=== PATIENT | female | born 1975 | race American Indian/Alaskan Native ===

== ENCOUNTER 2019-02-03 08:04 | Observation (INO) | payer BC ==
[2019-01-29 10:41] LABS: Mean Corpuscular HGB Conc 28 % (30-34); Platelet Count 267 K/mm3 (140-440); Red Blood Count 2.68 M/mm3 (3.65-5.03)
[2019-01-29 10:48] LABS: Hematocrit 16.7 % (30.3-42.9); Hemoglobin 4.7 gm/dl (10.1-14.3); Mean Corpuscular Volume 63 fl (79-97); Red Cell Distribution Width 31.2 % (13.2-15.2)
[2019-01-29 10:53] LABS: Blood Urea Nitrogen 11 mg/dL (7-17)
[2019-01-29 12:07] LABS: BUN/Creatinine Ratio 16; Calcium 8.8 mg/dL (8.4-10.2); Hemolysis Index 0
--- NOTE | 2019-01-29 12:18 | Anesthesia Consultation ---
Anesthesia Consult and Med Hx Date of service: 01/29/19 - Airway Anesthetic Teeth Evaluation: Good ROM Head & Neck: Adequate Mental/Hyoid Distance: Adequate Mallampati Class: Class III Intubation Access Assessment: Possibly Difficult - Pulmonary Exam CTA: Yes - Cardiac Exam Cardiac Exam: RRR (low grade tachycardia noted) - Pre-Operative Health Status ASA Pre-Surgery Classification: ASA3 Proposed Anesthetic Plan: General Nerve Block: TAP - Pulmonary Hx Smoking: No Hx Respiratory Symptoms: No Hx Sleep Apnea: Yes (no CPAP) - Cardiovascular System Hx Hypertension: Yes (not currently on antihypertensives) Hx Heart Attack/AMI: No Hx Percutaneous Transluminal Coronary Angioplasty (PTCA): No - Central Nervous System CVA: No Hx Psychiatric Problems: No - Gastrointestinal Hx Gastroesophageal Reflux Disease: No - Endocrine Hx Renal Disease: No Hx Liver Disease: No Hx Insulin Dependent Diabetes: No Hx Non-Insulin Dependent Diabetes: No Hx Thyroid Disease: No - Hematic Hx Anemia: Yes (last transfusion 09/2018) - Other Systems Hx Alcohol Use: Yes (Occas) Hx Obesity: Yes (BMI 46) - Additional Comments Anesthesia Medical History Comments: Hx PONV with prior anesthetic. Low grade tachycardia and modest hypertension noted in preassessment which patient attributed to anxiety. After patient left, Hb resulted 4.7. Patient called back and instructed to go to ED for transfusion. She states she will go to [facility] since this is closer to home. Surgeon's office notified. Will recheck CBC DOS.
[2019-01-29 12:56] LABS: Band Neutrophils # (Manual) 0.1 K/mm3; Total Cells Counted 100
[2019-01-29 12:57] LABS: Anisocytosis 2+; Hypochromasia 3+; Platelet Estimate Consistent w Auto
--- NOTE | 2019-02-02 20:26 | History and Physical Report ---
History of Present Illness Date of examination: 01/27/19 History of present illness: Patient has been reassessed/reevaluated. H&P has been reviewed. No interval changes. This is a 43 years old female who presents with uterine fibroids. The symptoms began 6-12 months ago. She complains of pelvic pain, pelvic pressure, menorrhagia and intermenstrual bleeding. Associated symptoms include recurrent loss. Treatment tried to date includes control pills and myomectomy. Prior to today's visit the patient has had US of pelvis and sonohysterogram. . She complains of irregular menses, heavy bleeding, dysmenorrhea, clotting, lightheadedness, fatigue and cramping, but denies mid-cycle spotting, lack of menses, history of ovarian cysts, history of thyroid disease, history of PCOS and history of bleeding disorder. Number of pads used per day is > 10. Menstrual flow lasts > 7 days.Patient's symptoms when present disrupts her normal daily activities Patient desires definitive treatment Vital Signs: Patient Profile: 43 Years Old Female Height: 63 inches (160.02 cm) Weight: 260 pounds BMI: 46.05 Current Method of Contraception: None Date of Last Pap Smear: 12/30/2018 Past History : 3 Term Births: 0 Premature Births: 1 Living Children: 0 Para: 1 Mult. Births: 0 Prev : 0 Aborta: 2 Elect. Ab: 0 Spont. 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 History Operations: [place] Robotic Myomectomy (10/11/2012) Uterine Anomaly: positive fibroids Infection History HIV Risk Eval: no Current Allergies: PCN (Critical) ASA (Critical) CIPRO (Critical) Past Medical History: Fibroids Anemia (10/14/2018) Blood Transfusion (10/14/2018) 3units PRBC Blood Transfusion (01/29/2019) 4units Past Surgical History: Cer[place]age Robotic Myomectomy (10/11/2012) Family History Summary: General Comments - FH: No Family History of DVT/PE on OCP Social History: Reviewed history from 09/24/2014 and no changes required: 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 Risk Factors: Smoked Tobacco Use: Never smoker Drug use: no HIV high-risk behavior: no Caffeine use: 1 drinks per day Alcohol use: yes Type: rare Exercise: yes Seatbelt use: 100 % PAP Smear History: Date of Last PAP Smear: 12/30/2018 Review of Systems General Complains of fatigue. Denies fever, chills, sweats, anorexia, weakness, malaise, weight loss and sleep disorder. Complains of menorrhagia, pelvic pain and painful periods. Denies vaginal discharge, incontinence, dysuria, hematuria, urinary frequency, amenorrhea, abnormal vaginal bleeding, genital sores, decreased libido, painful sex, urinary urgency, hot flashes, vaginal dryness, vaginal itching and vaginal odor. CV Denies chest pains, palpitations, syncope, dyspnea on exertion, orthopnea, PND and peripheral edema. Resp Denies cough, dyspnea at rest, excessive sputum, hemoptysis, wheezing and pleurisy. GI Denies nausea, vomiting, diarrhea, constipation, change in bowel habits, abdominal pain, melena, hematochezia, jaundice, gas/bloating, indigestion/heartburn, dysphagia and odynophagia. Breast Denies left breast lump, right breast lump, nipple discharge, bloody discharge from nipple, breast pain, abnormal mammogram and breast enlargement. Psych Denies depression, anxiety, irritability and mood swings. Past History Past Medical History: other (SEE HPI) Past Surgical History: Other (SEE HPI) Social history: other (SEE HPI) Family history: other (SEE HPI) Medications and Allergies Allergies Allergy/AdvReac Type Severity Reaction Status Date / Time ciprofloxacin [From Cipro] Allergy Anaphylaxis Verified 01/28/19 11:04 Penicillins Allergy Unknown Verified 01/28/19 11:04 aspirin AdvReac Stomach Verified 01/28/19 11:04 pain Home Medications Medication Instructions Recorded Confirmed Last Taken Type Ferrous Sulfate [Ferrous Sulfate 1 tab PO DAILY 01/28/19 01/28/19 Unknown History 324 MG] Ibuprofen [Motrin 800 MG tab] 800 mg PO Q8H PRN 01/28/19 01/28/19 Unknown History Norethindrone-Ethinyl Estrad 1 tab PO DAILY 01/28/19 01/28/19 Unknown History [Balziva 28 Tablet] Active Meds: Active Medications Celecoxib (Celebrex) 200 mg PO PREOP NR Stop: 02/03/19 23:00 Fentanyl (Sublimaze) 100 mcg IV PRN PRN PRN Reason: sedation for nerve block Gabapentin (Gabapentin) 300 mg PO PREOP NR Stop: 02/03/19 23:00 Lactated Ringer's (Lactated Ringers) 1,000 mls @ 100 mls/hr IV DIRECT ISHA Cefazolin Sodium 3 gm/ Sodium (Chloride) 100 mls @ 100 mls/30 min IV PREOP NR; Protocol Stop: 02/03/19 23:59 Midazolam HCl (Versed) 2 mg IV PREOP NR Stop: 02/03/19 23:00 Scopolamine (Transderm-Scop) 1 each TD PREOP NR Stop: 02/03/19 23:01 Review of Systems Constitutional: other (SEE HPI) Exam - Physical Exam Narrative exam: HEENT: normocephalic, no lesions or deformities Skin no ulcers, xanthomas Chest: respiratory effort normal, clear to auscultation CV: regular, normal S1-S2, no murmur, no rub, no gallop Abdomen: Obese, normal bowel sounds, soft, nontender, no HSM Robotic surgical scars Musculoskeletal: grossly normal ROM in joints, no joint tenderness or muscle weakness Neuro: no gross anomalities Extremities: normal alignment, no joint enlargement, crepitus, masses or tenderness; normal tone and strength 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 No evidence of cystocele or rectocele. blood in vault Cervix: normal appearance, small clot in os Uterus: unable to palpate Adnexae: unable to palpate due to obesity Rectovaginal: exam defered - Constitutional Vitals: Temp Pulse Resp BP Pulse Ox 99.6 F 107 H 20 159/97 99 01/29/19 10:20 01/29/19 10:20 01/29/19 10:20 01/29/19 10:20 01/29/19 10:20 Results - Labs CBC & Chem 7: 02/03/19 Unknown 01/29/19 10:25 Assessment and Plan - Patient Problems (1) Intramural leiomyoma of uterus Current Visit: No Status: Acute Plan to address problem: Diagnosis explained to patient . Questions answered. Discussed with patient various medical, surgical and radiological therapies common for treatment including myomectomy hysterectomy and uterine artery embolization Patient's symptoms when present disrupts her normal daily activities Patient desires definitive treatment Conservative therapies have failed. Patient desires definitive treatment Patient desires hysterectomy Discussed risks and benefits of laparotomy, laparoscopy, vaginal and robotic assisted approaches for hysterectomies Patient desires robotic assisted total hysterectomy.Patient desires robotic assisted total hysterectomy. Consent reviewed and signed . The risks and alternatives for this surgery were reviewed with the patient. Discuss the risks of the surgery including infection, bleeding possibly heavy enough to require a blood transfusion, possible damage to bowel, bladder or ureter. Patient understand that this surgery with make her sterile.Patient understands if her ovaries are removed she will become menopausal. Also if unable to complete robitcally a laparotomy may be required. Patient advised the small risks of spreading of malignancy if morcellator is used during the surgery patient understands and approve of use if necessary Patient understands and desires to proceed. : (2) Menorrhagia Current Visit: No Status: Acute Qualifiers: Menorrahagia type: with irregular cycle Qualified Code(s): N92.1 - Excessive and frequent menstruation with irregular cycle Plan to address problem: Probably secondary to # 1 (3) Severe anemia Current Visit: No Status: Acute Plan to address problem: Probably secondary to # 1 s/p transfusions (4) BMI 45.0-49.9, adult Current Visit: No Status: Chronic (5) Dysmenorrhea Current Visit: No Status: Acute Plan to address problem: Probably secondary to # 1
[~2019-02-03 08:04] MED LIST: CELECOXIB 200 MG CAP PO NR; GABAPENTIN 300 MG CAP PO NR; LACTATED RINGERS 1,000 ML IV SCH; MIDAZOLAM 2 MG/2 ML INJ IV NR; SCOPOLAMINE TRANSDERMAL PATCH 72 HR TD NR; fentaNYL 100 MCG/2 ML INJ IV PRN
--- NOTE | 2019-02-03 09:02 | Anesthesia Day of Surgery ---
Anesthesia Day of Surgery - Day of Surgery Patient Examined: Yes Patient H&P Reviewed: Yes Patient is NPO: Yes
[2019-02-03 09:09] LABS: Hematocrit 30.5 % (30.3-42.9); Hemoglobin 9.7 gm/dl (10.1-14.3); Mean Corpuscular HGB Conc 32 % (30-34); Mean Corpuscular Volume 70 fl (79-97); Platelet Count 724 K/mm3 (140-440); Red Blood Count 4.36 M/mm3 (3.65-5.03)
[2019-02-03 09:10] LABS: Red Cell Distribution Width 34.7 % (13.2-15.2)
[2019-02-03] MEDS ORDERED: GENTAMICIN 160 MG in SODIUM CHLORIDE 0.9% 100 ML IV NR (09:13)
[2019-02-03] MEDS ORDERED: LIDOCAINE (1%) 10 MG/1 ML VIAL 20 ML MDV ONE (09:28)
[2019-02-03] MEDS ORDERED: BUPIVACAINE-EPINEPHRINE/PF 0.5%-1:200,000 (30 ML) VIAL INFILTRATI ONE (09:28)
[2019-02-03] MEDS ORDERED: NEOMY 40 MG/POLYMYXIN B 200,000 UNITS/ML (GU) AMPULE IR ONE ×2 (10:20→12:19)
[2019-02-03] MEDS ORDERED: ONDANSETRON 4 MG/2 ML INJ ONE (10:28)
[2019-02-03] MEDS ORDERED: GLYCOPYRROLATE 0.4 MG/2 ML INJ ONE (10:28)
[2019-02-03] MEDS ORDERED: ROCURONIUM 50 MG/5 ML INJ IV ONE (10:28)
[2019-02-03] MEDS ORDERED: fentaNYL 250 MCG/5 ML INJ ONE (10:28)
[2019-02-03] MEDS ORDERED: NEOSTIGMINE 10MG/10 ML INJ MDV ONE (10:28)
[2019-02-03] MEDS ORDERED: PHENYLEPHRINE/NS 1,000 MCG/10 ML SYRINGE (OR USE) IV ONE (10:28)
[2019-02-03] MEDS ORDERED: dexAMETHasone 20 MG/5 ML VIAL ONE (10:28)
[2019-02-03] MEDS ORDERED: LIDOCAINE MPF (2%) 20 MG/1 ML VIAL 5 ML ONE (10:28)
[2019-02-03] MEDS ORDERED: PROPOFOL 200 MG/20 ML VIAL IV ONE (10:28)
[2019-02-03] MEDS ORDERED: CITRIC ACID-SOD CITRATE 500 ML IV ONE (10:40)
[2019-02-03] MEDS ORDERED: SODIUM CHLORIDE 0.9% IRR 1,500 ML BOTTLE IR ONE (12:19)
[2019-02-03] MEDS ORDERED: SODIUM CHLORIDE 0.9% IRRIG SOLN 2000 ML IR ONE (12:19)
[2019-02-03] MEDS ORDERED: CITRIC ACID-SOD CITRATE SOLN 500 ML IV SOLN IV ONE (12:19)
[2019-02-03] MEDS ORDERED: HYDROmorphone 1 MG/1 ML INJ ONE (13:28)
--- NOTE | 2019-02-03 14:52 | Post Operative Note ---
Pre-op diagnosis: symptomatic leiomyoma Post-op diagnosis: same Findings: 18 week size uterus Procedure: RATH with bilateral salpingectomy Anesthesia: GETA Surgeon: JOSE RENDON Estimated blood loss: other (200cc) Condition: stable Disposition: PACU
[2019-02-03] MEDS ORDERED: HYDROcodone/ACETAMINOPHEN 5-325 MG TAB PO PRN (17:36)
[2019-02-03] MEDS ORDERED: ONDANSETRON 4 MG/2 ML INJ IV PRN (17:36)
[2019-02-03] MEDS ORDERED: D5W/LACTATED RINGERS 1,000 ML IV SCH (17:36)
[2019-02-03] MEDS ORDERED: MAGNESIUM HYDROXIDE (MOM) ORAL LIQD UDC PO PRN (17:36)
--- NOTE | 2019-02-03 17:45 | Operative Report ---
Operative Report Operative Report: Date of procedure: 02/03/2019 Pre-operative diagnosis: Large leiomyomata with menorrhalgia, dysmenorrhea, donavon re anemia status post multiple blood transfusions Post-operative diagnosis: Same Procedure name(s):Robotic Assisted Total Hysterectomy with bilateral salpingectomy Surgeon: Wilfredo Gaona MD Dry Clipper Tender: April Hewitt, certified retinal angiographer Anesthesia: General EBL: 200 mL Complications: None Findings: Uterus 18 weeks in size with multiple leiomyomata multiple myomas greater than 8 cm in diameter adhesions between the left adnexa and colon and left sidewall. Normal ovaries bilaterally Specimen(s): Uterus with cervix, myomas, bilateral fallopian tubes Procedure: Patient was brought to the operating room where general anesthesia was induced without difficulty. Patient was placed in the dorsal lithotomy position. Prepped and draped in the usual sterile manner for robotic procedure. Thakur catheter was placed without difficulty. Speculum was placed in the vagina. A medium V-Care Uterine manipulator was placed without difficulty. Attention was now switched to the patient's abdomen. A vertical supra-umbilicus incision was made with a scalpel. A 10-12 trocar was placed in this incision under direct visualization. Intra-abdominal placement was verified with no e vidence of internal organ damage. The patient pelvic findings were noted as above. It was determined that the patient was a candidate for robotic procedure. On both sides the umbilical incision at about 8 cm, incisions were made for robotic trocar. Each robotic trocar was placed under direct visualization with no evidence of internal organ damage. One 8-10 trocar was placed 2 fingerbreadths above the right iliac crest for yard assistant surgery port. . At this time the patient was placed in extreme Trendelenburg. The da Chrissie robot was then docked on the patient's left side. The trocars connected to the robot appropriately. At this time I took my place under the robotic operating waddell. Starting on the patient's right side the mesosalpinx of the tube were cauterized for mild distal to proximal tube. Bipolar cautery was placed across the proximal portion of the fallopian tube. This area was cauterized and cut the fallopian tube was then removed from the large yard assistant port. Utero- ovarian complex was cauterized and cut. This was followed by cauterizing and cutting the right fallopian tube and right round ligament. The broad ligament was then opened. The bladder flap was formed anteriorly. The posterior broad ligament was then excised. The uterine vessels were skeletonized. The ureter was clearly seen out of the operative field. The bladder was pushed away from the anterior uterus. Attention was then switched to the patient's left side. The same procedure was repeated on the left side with perform the salpingectomy followed by isolating the uterine vessels cauterized and cutting and completing the bladder flap from the left side. After inspecting the bladder flap insured no evidence of bladder injury, the colpotomy was then started. Because of better visualization anteriorly the colpotomy was started between the anterior uterus and the bladder. Incision started at 12:00 until the V-Care could be seen. This incision was extended from 12:00 to 9:00. Then from 12:00 to 3:00. Then from 9:00 to 6:00. This incision was extended from 3:00 to 6:00. At this time colpotomy was complete with no evidence of adjacent organ damage. The uterine specimen was extremely large was required removal very large anterior myoma versus excising through the serosa and cut in through the myometrium and removing this approximately 10-12 cm diameter myoma. This moment was placed through the colpotomy and required to have to excise name: Out this large myoma through the vagina. Once this was done the remaining uterus was delivered through the colpotomy remaining uterus also required coring its incisions to decrease the size of the specimen able to deliver the colpotomy site. The uterus from through the colpotomy site. The vagina was then inspected and found to be without any lacerations. A return to position under the operating fluid. The vaginal cuff was irrigated and cauterized and found to be hemostatic. The cuff was closed with roboticly using 0 V- Lock suture. This closure was hemostatic after irrigation and Bovie. All pedicles were inspected and found to be hemostatic. The ureters were identified bilaterally and found to be function ing normal. The patient had clear urine in the Thakur catheter with no evidence of mixture with blood. [place] was placed on the cuff and pedicles for postoperative hemostasis . All instruments were then removed. The large trocar sites were closed in layers and 4-0 Vicryl. The smaller incisions were closed subcuticularly with 4-0 Vicryl. The patient tolerated procedure well. She was awakened in the operating room and accompanied to the recovery room in good condition.
--- NOTE | 2019-02-03 18:00 | Event Note ---
Date: 02/03/19 Day of surgery. Discuss operative findings with patient and questions answered. Patient without fever. Will ambulate in halls this evening. Good urine output. We will continue routine postoperative care.
--- NOTE | 2019-02-03 18:10 | Post Anesthesia Evaluation ---
- Post Anesthesia Evaluation Patient Participated: Yes Airway Patent: Yes Stable Respiratory Function: Yes Nausea/Vomiting: No Temp > 96.8F: Yes Pain Manageable: Yes Adequeate Hydration: Yes Anesthesia Complications: No Block Receding Appropriately: Yes Patient on Ventilator: No
[2019-02-03] MEDS: DOCUSATE SODIUM 100 MG CAP PO SCH (21:01)
[2019-02-03] MEDS: KETOROLAC 30 MG/1 ML INJ IV SCH (21:01)
[2019-02-03] MEDS: CLINDAMYCIN 600 MG/50 mL 600 MG/50 ML BAG IV SCH (22:07)
[2019-02-04 04:22] LABS: Hematocrit 27.3 % (30.3-42.9); Hemoglobin 8.5 gm/dl (10.1-14.3)
[2019-02-04] MEDS: KETOROLAC 30 MG/1 ML INJ IV SCH (05:29)
[2019-02-04] MEDS: CLINDAMYCIN 600 MG/50 mL 600 MG/50 ML BAG IV SCH (05:29)
[2019-02-04] MEDS ORDERED: IBUPROFEN 800 MG TAB PO PRN (06:00)
--- NOTE | 2019-02-04 08:29 | Progress Note ---
Assessment and Plan - Patient Problems (1) Intramural leiomyoma of uterus Current Visit: No Status: Resolved (2) Menorrhagia Current Visit: No Status: Resolved Qualifiers: Menorrahagia type: with irregular cycle Qualified Code(s): N92.1 - Excessive and frequent menstruation with irregular cycle (3) Severe anemia Current Visit: No Status: Acute (4) BMI 45.0-49.9, adult Current Visit: No Status: Chronic (5) Dysmenorrhea Current Visit: No Status: Resolved (6) Hypertension Current Visit: Yes Status: Acute Qualifiers: Hypertension type: essential hypertension Qualified Code(s): I10 - Essential (primary) hypertension Plan to address problem: Patient just reveals that she been treated for hypertension. Patient does have her home meds with her. We'll start on on her Procardia with follow-up with her primary care doctor after discharge (7) Status post hysterectomy Current Visit: Yes Status: Acute Plan to address problem: Patient good urine output last evening and did ambulate in howe. Thakur catheter removed this morning. Will await patient to have spontaneous voiding advance diet to regular diet. If Patient successfully voided and tolerated regular diet will discharge early this afternoon Subjective Date of service: 02/04/19 Patient Reports: Positive: feels better, pain is less, tolerating liquids well, no flatus, afebrile, other (complains of left eye irritation). Negative: vomiting, shortness of breath, fever Narrative: Patient with elevated blood pressures overnight were normalized on labetalol. Patient did not tell me until this morning that she had been placed on Procardia and had not been taking it. Objective Vital Signs - 12hr 02/03/19 02/03/19 02/04/19 20:30 23:22 04:15 Temperature 98.6 F 98.6 F Pulse Rate 98 H 95 H Pulse Rate [ 108 H Apical] Respiratory 20 22 Rate Blood Pressure 143/87 129/82 O2 Sat by Pulse 99 97 Oximetry - General physical appearance well developed, well nourished, obese - Respiratory normal respiratory effort - Abdomen soft, tender (appropriately), bowel sounds normal, surgical scars (healing well) - Integumentary no rash, no growths, no abnormal pigmentation - Psychiatric oriented to time, oriented to person, oriented to place, speech is normal, memory intact - Labs 02/04/19 03:52 01/29/19 10:25
[2019-02-04] MEDS ORDERED: NIFEdipine XL 90 MG TAB PO SCH (10:00)
[2019-02-04] MEDS: DOCUSATE SODIUM 100 MG CAP PO SCH (10:57)
[2019-02-04 12:07] VITALS: BP 107/66
--- NOTE | 2019-02-04 12:24 | Short Stay Summary ---
Short Stay Documentation Date of service: 02/04/19 - History Past Medical History: other (SEE HPI) Past Surgical History: Other (SEE HPI) Social history: other (SEE HPI) - Allergies and Medications Current Medications: Allergies ciprofloxacin [From Cipro] Allergy (Verified 01/28/19 11:04) Anaphylaxis Penicillins Allergy (Verified 01/28/19 11:04) Unknown aspirin Adverse Reaction (Verified 01/28/19 11:04) Stomach pain Home Medications Medication Instructions Recorded Confirmed Last Taken Type Ferrous Sulfate [Ferrous Sulfate 1 tab PO DAILY 01/28/19 01/28/19 Unknown Histo ry 324 MG] Ibuprofen [Motrin 800 MG tab] 800 mg PO Q8H PRN 01/28/19 01/28/19 Unknown History Norethindrone-Ethinyl Estrad 1 tab PO DAILY 01/28/19 01/28/19 Unknown History [Balziva 28 Tablet] Ibuprofen [Motrin 800 MG tab] 800 mg PO Q6H PRN #30 tablet 02/04/19 Unknown Rx oxyCODONE /ACETAMINOPHEN [Percocet 1 - 2 tab PO Q4H PRN #30 tablet 02/04/19 Unknown Rx 5/325 mg] Active Medications Acetaminophen/Hydrocodone Bitart ([place] 5/325) 2 each PO Q4H PRN PRN Reason: Pain, Moderate (4-6) Last Admin: 02/04/19 11:03 Dose: 2 each Documented by: Docusate Sodium (Colace) 100 mg PO BID [facility] Last Admin: 02/04/19 10:57 Dose: 100 mg Documented by: Dextrose/Lactated Ringer's ([email or web address]) 1,000 mls @ 125 mls/hr IV DIRECT [facility] Last Admin: 02/03/19 18:00 Dose: 125 mls/hr Documented by: Ibuprofen (Ibuprofen) 800 mg PO Q6H PRN PRN Reason: Pain, Mild (1-3) Magnesium Hydroxide (Milk Of Magnesia) 30 ml PO Q4H PRN PRN Reason: Constipation Nifedipine (Procardia Xl) 90 mg PO QDAY [facility] Last Admin: 02/04/19 10:57 Dose: 90 mg Documented by: Ondansetron HCl (Zofran) 4 mg IV Q8H PRN PRN Reason: Nausea And Vomiting - Physical exam General appearance: no acute distress Lungs: Normal air movement Breasts: deferred Heart: Regular rate Gastrointestinal: normal, normoactive bowel sounds, tenderness (appopriate post operative) Female Genitourinary: deferred Rectal Exam: deferred Extremities: no ischemia Neurological: Normal gait, Normal speech - Brief post op/procedure progress note Date of procedure: 02/03/19 (See dictated operative note) - Hospital course Hospital course: Patient was admitted and underwent above procedure without complications. Her post operative course was benign she was afebrile throughout. Patient postoperative hematocrit was in an acceptable range. Patient had no orthostatic symptoms. Patient was tolerating regular diet and voiding without difficulty at time of discharge. Patient incision was healing well without evidence of infection. Patient did complain of some irritation of the left eye address anesthesia with drops to be taken upon discharge - Disposition Condition at discharge: Stable Disposition: [id number] TO HOME OR SELFCARE - Discharge Diagnoses (1) Intramural leiomyoma of uterus Status: Resolved (2) Menorrhagia Status: Resolved Qualifiers: Menorrahagia type: with irregular cycle Qualified Code(s): N92.1 - Excessive and frequent menstruation with irregular cycle (3) Severe anemia Status: Acute (4) BMI 45.0-49.9, adult Status: Chronic (5) Dysmenorrhea Status: Resolved (6) Hypertension Status: Acute Qualifiers: Hypertension type: essential hypertension Qualified Code(s): I10 - Essential (primary) hypertension (7) Status post hysterectomy Status: Acute Short Stay Discharge Plan Activity: advance as tolerated Diet: regular Wound: open to air Additional Instructions: Patient instructed no heavy lifting for 4 weeks. No intercourse for 8 weeks. Call office for fever, chills, nausea, vomiting or pain not controlled by pain medications. Ambulation is encouraged. Patient's call for heavy vaginal bleeding. Patient instructed to keep her scheduled post operative office appointment. Follow up with: [facility] [Other] - 7 Days Forms: [facility] Discharge Summary Prescriptions: Ibuprofen [Motrin 800 MG tab] 800 mg PO Q6H PRN #30 tablet PRN Reason: Pain oxyCODONE /ACETAMINOPHEN [Percocet 5/325 mg] 1 - 2 tab PO Q4H PRN #30 tablet PRN Reason: Pain, Moderate
[2019-02-04] MEDS ORDERED: FLURBIPROFEN SODIUM OU SCH (14:00)
--- NOTE | 2019-02-04 14:49 | Progress Note ---
Subjective Date of service: 02/04/19 Principal diagnosis: Blurred vision Interval history: Called to evaluate patient for blurred vision starting after robotic hysterectomy. Pt states it was present on awakening from anesthesia, L worse than R. States scratchy feeling to L eye yesterday progressed to just tearing today with no pain. Her states both eyes slightly swollen. No history of migraines, visual disturbances or headache. Anesthetic record shows nothing of concern. No other symptoms. On exam, eyes do not appear swollen, move freely in all quadrants, perrla, no redness noted. Strength equal and strong in all extremities. Will treat as possible corneal abrasion of L eye with eye gtts for comfort and mild bilateral brenda-orbital edema from positioning. All symptoms should resolve within a week with no further intervention and patient is instructed to follow up with it worsens or does not resolve. Objective - Constitutional Vitals: Vital Signs - 12hr 02/04/19 02/04/19 02/04/19 04:15 08:14 12:01 Temperature 98.6 F 98.5 F 98.4 F Pulse Rate 95 H 90 92 H Respiratory 22 16 20 Rate Blood Pressure 129/82 128/73 107/66 O2 Sat by Pulse 97 95 98 Oximetry - Labs CBC & Chem 7: 02/04/19 03:52 01/29/19 10:25 Labs: Abnormal lab results 02/04/19 Range/Units 03:52 Hgb 8.5 L (10.1-14.3) gm/dl Hct 27.3 L (30.3-42.9) %
== END 2019-02-04 16:45 | disposition home or self-care (01) ==
LOC: OR 08:04 → OB 14:36
PROVIDERS: ADMIT Obstetrics & Gynecology; ATTEND Obstetrics & Gynecology
DX: D25.1 Intramural leiomyoma of uterus (principal); N92.1 Excessive and frequent menstruation with irregular cycle; N94.6 Dysmenorrhea, unspecified; D64.9 Anemia, unspecified; H53.8 Other visual disturbances; Z79.899 Other long term (current) drug therapy; Z88.0 Allergy status to penicillin; Z88.1 Allergy status to other antibiotic agents; Z88.6 Allergy status to analgesic agent
CPT/HCPCS: 36415; 58571; 64450; 80048; 84703; 85007; 85014; 85018; 85025; 85027; 86850; 86900; 86901; 88302; 88307; 94660; 96365; 96366; 96375; 96376; A4217; G0378; J1100; J1170; J1580; J1885; J2250; J2370; J2405; J2704; J2710; J3010; J7120; J7121; S2900

== ENCOUNTER 2019-02-09 07:53 | Inpatient (IN) | payer BC ==
[2019-02-09] MEDS ORDERED: ONDANSETRON 4 MG/2 ML INJ IV PRN (08:03)
[2019-02-09] MEDS ORDERED: ACETAMINOPHEN 325 MG TAB PO PRN (08:03)
--- NOTE | 2019-02-09 11:10 | History and Physical Report ---
History of Present Illness Date of examination: 02/09/19 Date of admission: 02/09/19 10:50 Chief complaint: vaginal discharge and pain History of present illness: Pt is POD #6 s/p YUE withBS that presented to [facility] hospital c/o vaginal discharge and pelvic pain. Discharge stared today early this am that she states gushed out and was a large amount with a foul odor. When in the ER for [facility] she had CT scan with contract done and was read as a 7.5x5.5cm fluid collection that contains multiple air bubbles most likely an abscess. Pt was not septic and clinically stable so was transferred to [facility] mother baby unit. Right now state she still does have pain and is having the discharge. Past History : 3 Term Births: 0 Premature Births: 1 Living Children: 0 Para: 1 Mult. Births: 0 Prev : 0 Aborta: 2 Elect. Ab: 0 Spont. 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 History Operations: [place]age Robotic Myomectomy (10/11/2012) Uterine Anomaly: positive fibroids Infection History HIV Risk Eval: no Current Allergies: PCN (Critical) ASA (Critical) CIPRO (Critical) Past Medical History: Fibroids Anemia (10/14/2018) Blood Transfusion (10/14/2018) 3units PRBC Blood Transfusion (01/29/2019) 4units Past Surgical History: [place] Robotic Myomectomy (10/11/2012) Robotic Hysterectomy 02/03/2019 Family History Summary: General Comments - FH: No Family History of DVT/PE on OCP Social History: Reviewed history from 09/24/2014 and no changes required: 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 Risk Factors: Smoked Tobacco Use: Never smoker Drug use: no HIV high-risk behavior: no Caffeine use: 1 drinks per day Alcohol use: yes Type: rare Exercise: yes Seatbelt use: 100 % PAP Smear History: Date of Last PAP Smear: 12/30/2018 Past History Past Medical History: hypertension (see hpi), other Past Surgical History: other (see hpi) CHILDCARE ATTENDANT History: other (see hpi) Family/Genetic History: other (see hpi) Social history: no significant social history Medications and Allergies Allergies Allergy/AdvReac Type Severity Reaction Status Date / Time ciprofloxacin [From Cipro] Allergy Anaphylaxis Verified 01/28/19 11:04 Penicillins Allergy Unknown Verified 01/28/19 11:04 aspirin AdvReac Stomach Verified 01/28/19 11:04 pain Home Medications Medication Instructions Recorded Confirmed Last Taken Type Ferrous Sulfate [Ferrous Sulfate 1 tab PO DAILY 01/28/19 01/28/19 Unknown History 324 MG] Ibuprofen [Motrin 800 MG tab] 800 mg PO Q8H PRN 01/28/19 01/28/19 Unknown History Norethindrone-Ethinyl Estrad 1 tab PO DAILY 01/28/19 01/28/19 Unknown History [Balziva 28 Tablet] Ibuprofen [Motrin 800 MG tab] 800 mg PO Q6H PRN #30 tablet 02/04/19 Unknown Rx oxyCODONE /ACETAMINOPHEN [Percocet 1 - 2 tab PO Q4H PRN #30 tablet 02/04/19 Unknown Rx 5/325 mg] Active Meds: Active Medications Acetaminophen (Tylenol) 650 mg PO Q4H PRN PRN Reason: Pain MILD(1-3)/Fever >100.5/[place]O Acetaminophen/Hydrocodone Bitart ([place] 5/325) 2 each PO Q6H PRN PRN Reason: Pain, Moderate (4-6) Clindamycin HCl (Cleocin 900 Mg/50 Ml) 900 mg in 50 mls @ 100 mls/hr IV Q8HR ISHA; Protocol Ondansetron HCl (Zofran) 4 mg IV Q8H PRN PRN Reason: Nausea And Vomiting Sodium Chloride (Sodium Chloride Flush Syringe 10 Ml) 10 ml IV BID ISHA Sodium Chloride (Sodium Chloride Flush Syringe 10 Ml) 10 ml IV PRN PRN PRN Reason: LINE FLUSH Review of Systems All systems: negative - Physical Exam Cardiovascular: Normal S1, Normal S2 Lungs: Positive: Clear to auscultation, Normal air movement Abdomen: Positive: normal appearance, soft. Negative: distention, tenderness, guarding Genitourinary (Female): Positive: other (deferred at this time) Results All other labs normal. Assessment and Plan - Patient Problems (1) Postoperative abscess Current Visit: Yes Status: Acute Plan to address problem: - antibx started -Will consult IR for possible CT guided drainage -spoke with Dr. Gaona primary CHILDCARE ATTENDANT/ surgeon who agrees with plan of care. (2) Hypertension Current Visit: No Status: Acute Qualifiers: Hypertension type: essential hypertension Qualified Code(s): I10 - Essential (primary) hypertension Plan to address problem: -bp stable -con't oral meds (3) Status post hysterectomy Current Visit: No Status: Acute Plan to address problem: -routine post op care -pain management
[2019-02-09] MEDS ORDERED: NIFEdipine XL 90 MG TAB PO SCH (12:00)
[2019-02-09] MEDS: NIFEdipine XL 30 MG TAB PO SCH (12:56)
[2019-02-09] MEDS: metroNIDAZOLE/NS 500 MG/100 ML 500 MG/100 ML BAG IV SCH ×2 (13:00→18:00)
[2019-02-09] MEDS: HYDROcodone/ACETAMINOPHEN 5-325 MG TAB PO PRN (14:28)
--- NOTE | 2019-02-09 16:46 | Cat Scan Report ---
CT ABDOMEN AND PELVIS WITHOUT CONTRAST INDICATION: Possible abscess status post hysterectomy. COMPARISON: No relevant prior imaging study available. TECHNIQUE: Axial, coronal and sagittal CT imaging of the abdomen and pelvis was performed without co ntrast. Lack of intravenous contrast limits evaluation of the vascular and solid organs. All CT sca ns at this location are performed using CT dose reduction for ALARA by means of automated exposure co ntrol. FINDINGS: LOWER CHEST: No significant abnormality. LIVER: No significant abnormality. BILIARY: No significant abnormality. PANCREAS: No significant abnormality. SPLEEN: No significant abnormality. ADRENALS: No significant abnormality. KIDNEYS AND URETERS: No significant abnormality. GI TRACT: No significant abnormality of the stomach, small bowel or colon. Unremarkable appendix. PERITONEUM: Scattered free fluid and inflammation is noted along the pelvis. There is a fluid collect ion containing gas along the midline of the pelvis at the former location of the uterus measuring 5.6 x 4.6 cm on image 146 of series 2. A small amount of free air surrounds this abnormality. No free ai r is seen elsewhere. LYMPH NODES: No significant adenopathy. VASCULATURE: No significant abnormality. URINARY BLADDER: No significant abnormality. REPRODUCTIVE ORGANS: There has been prior hysterectomy. ADDITIONAL FINDINGS: None. SKELETAL SYSTEM: No acute abnormality is seen. There are mild degenerative changes along the spine. IMPRESSION: Possible abscess at the site of a hysterectomy with a surrounding small amount of free air. This poss ible abscess is surrounded by bowel loops and likely not amenable to percutaneous drainage. Signer Name: Jamil Monzon MD Signed: 02/09/2019 4:42 PM Workstation Name: [id number]
[2019-02-10] MEDS: metroNIDAZOLE/NS 500 MG/100 ML 500 MG/100 ML BAG IV SCH ×5 (00:40→23:44)
--- NOTE | 2019-02-10 08:57 | Progress Note ---
Assessment and Plan - Patient Problems (1) Pelvic abscess in female Current Visit: Yes Status: Acute Plan to address problem: Interventional radiologist to see today to assess for possible drainage. Patient is afebrile. Will continue present antibiotics. (2) Hypertension Current Visit: No Status: Acute Qualifiers: Hypertension type: essential hypertension Qualified Code(s): I10 - Essential (primary) hypertension Plan to address problem: Normotensive will continue present medications (3) BMI 40.0-44.9, adult Current Visit: Yes Status: Chronic Subjective Date of service: 02/10/19 Patient Reports: Positive: no new complaints, feels better, still having pain, pain is less, tolerating a regular diet, voiding w/o difficulty, flatus, afebrile, other (patient states vaginal draining has decreased. Pain is under control). Negative: vomiting (patient states vaginal drainingis less) Objective Vital Signs - 12hr 02/09/19 02/09/19 02/10/19 22:00 23:35 04:50 Temperature 98.2 F 97.7 F Pulse Rate 94 H 93 H Pulse Rate [ 80 Right Radial] Respiratory 18 20 20 Rate Blood Pressure 126/78 135/75 [Left] O2 Sat by Pulse 98 96 Oximetry - General physical appearance well developed, well nourished, no distress, moderate pain, obese - Respiratory normal respiratory effort - Abdomen soft, bowel sounds normal, surgical scars - Genitourinary normal external genitalia - Integumentary no rash, no growths, no abnormal pigmentation - Psychiatric oriented to time, oriented to person, oriented to place, speech is normal, memory intact
[2019-02-10] MEDS: NIFEdipine XL 30 MG TAB PO SCH (10:16)
[2019-02-10] MEDS: HYDROcodone/ACETAMINOPHEN 5-325 MG TAB PO PRN (12:31)
[2019-02-10 12:36] LABS: Hematocrit 27.3 % (30.3-42.9); Hemoglobin 8.4 gm/dl (10.1-14.3); Mean Corpuscular HGB Conc 31 % (30-34); Mean Corpuscular Volume 70 fl (79-97); Platelet Count 518 K/mm3 (140-440); Red Blood Count 3.89 M/mm3 (3.65-5.03)
[2019-02-10 12:37] LABS: Red Cell Distribution Width 33.3 % (13.2-15.2)
[2019-02-10 13:35] LABS: Total Cells Counted 100
[2019-02-10 13:36] LABS: Anisocytosis 3+; Poikilocytosis 1+
[2019-02-10 13:37] LABS: Hypochromasia 2+; Large Platelets Few; Platelet Estimate Consistent w Auto; Target Cells 1+
--- NOTE | 2019-02-10 15:58 | Consultation ---
History of Present Illness - Reason for Consult Consult date: 02/10/19 pelvic abscess - History of Present Illness Patient with a history of laparoscopic neurectomy who ended to the [facility] with abdominal pain and foul-smelling drainage. She underwent a CT of the abdomen and pelvis with IV contrast at [facility] and was subsequently transferred to [facility] where she underwent a repeat CT of the abdomen and pelvis without contrast. A review of the CT from [facility] demonstrates a deep pelvic fluid collection with what appears to be rim enhancement. Past History Past Surgical History: hysterectomy Social history: no significant social history Medications and Allergies Allergies Allergy/AdvReac Type Severity Reaction Status Date / Time ciprofloxacin [From Cipro] Allergy Anaphylaxis Verified 01/28/19 11:04 Penicillins Allergy Unknown Verified 01/28/19 11:04 aspirin AdvReac Stomach Verified 01/28/19 11:04 pain Home Medications Medication Instructions Recorded Confirmed Last Taken Type Ferrous Sulfate [Ferrous Sulfate 1 tab PO DAILY 01/28/19 02/10/19 Unknown History 324 MG] Ibuprofen [Motrin 800 MG tab] 800 mg PO Q8H PRN 01/28/19 02/10/19 Unknown History Norethindrone-Ethinyl Estrad 1 tab PO DAILY 01/28/19 02/10/19 Unknown History [Balziva 28 Tablet] Ibuprofen [Motrin 800 MG tab] 800 mg PO Q6H PRN #30 tablet 02/04/19 02/10/19 Unknown Rx oxyCODONE /ACETAMINOPHEN [Percocet 1 - 2 tab PO Q4H PRN #30 tablet 02/04/19 02/10/19 Unknown Rx 5/325 mg] Active Meds: Active Medications Acetaminophen (Tylenol) 650 mg PO Q4H PRN PRN Reason: Pain MILD(1-3)/Fever >100.5/[place] Acetaminophen/Hydrocodone Bitart ([place] 5/325) 2 each PO Q6H PRN PRN Reason: Pain, Moderate (4-6) Last Admin: 02/10/19 12:31 Dose: 2 each Documented by: Clindamycin HCl (Cleocin 900 Mg/50 Ml) 900 mg in 50 mls @ 100 mls/hr IV Q8HR ISHA; Protocol Last Admin: 02/10/19 07:13 Dose: 100 mls/hr Documented by: Metronidazole (Flagyl 500 Mg/100 Ml) 500 mg in 100 mls @ 100 mls/hr IV Q6HR [facility]; Protocol Last Admin: 02/10/19 12:21 Dose: 100 mls/hr Documented by: Nifedipine (Procardia Xl) 90 mg PO QDAY [facility] Last Admin: 02/10/19 10:16 Dose: 90 mg Documented by: Ondansetron HCl (Zofran) 4 mg IV Q8H PRN PRN Reason: Nausea And Vomiting Sodium Chloride (Sodium Chloride Flush Syringe 10 Ml) 10 ml IV BID [facility] Last Admin: 02/09/19 23:26 Dose: 10 ml Documented by: Sodium Chloride (Sodium Chloride Flush Syringe 10 Ml) 10 ml IV PRN PRN PRN Reason: LINE FLUSH Review of Systems All systems: negative Exam - Constitutional Vitals: Temp Pulse Resp BP Pulse Ox 98.5 F 98 H 16 144/88 98 02/10/19 12:07 02/10/19 12:07 02/10/19 12:07 02/10/19 12:07 02/10/19 12:07 General appearance: Present: no acute distress - EENT Eyes: Present: EOM intact ENT: hearing intact - Neck Neck: Present: supple, normal ROM - Respiratory Respiratory effort: normal - Abdominal General gastrointestinal: Present: deferred Female genitourinary: Present: deferred - Rectal Rectal Exam: deferred - Psychiatric Psychiatric: appropriate mood/affect, cooperative Results - Labs CBC & Chem 7: 02/10/19 12:10 Labs: Abnormal lab results 02/10/19 Range/Units 12:10 Hgb 8.4 L (10.1-14.3) gm/dl Hct 27.3 L (30.3-42.9) % MCV 70 L (79-97) fl MCH 22 L (28-32) pg RDW 33.3 H (13.2-15.2) % Plt Count 518 H (140-440) K/mm3 Seg Neuts % (Manual) 78.0 H (40.0-70.0) % Lymphocytes % (Manual) 13.0 L (13.4-35.0) % Lymphocytes # (Manual) 1.1 L (1.2-5.4) K/mm3 Assessment and Plan Patient is agreeable to an attempt at percutaneous drainage of the pelvic fluid collection however, she does not want a draining left behind as she is concerned about additional complications. Following review the patient's CT scan with contrast. Fluid collection may be amenable to percutaneous drainage from a posterior approach. Patient will be made nothing by mouth after midnight for planned CT-guided aspiration of the fluid collection with samples sent for laboratory analysis.
--- NOTE | 2019-02-10 19:46 | Event Note ---
Date: 02/10/[address] Mcleod's help. Plans as noted above. Patient now with a normal white count.
[2019-02-11] MEDS: metroNIDAZOLE/NS 500 MG/100 ML 500 MG/100 ML BAG IV SCH ×3 (05:40→17:33)
[2019-02-11] MEDS: HYDROcodone/ACETAMINOPHEN 5-325 MG TAB PO PRN (05:47)
[2019-02-11] MEDS: NIFEdipine XL 30 MG TAB PO SCH (09:32)
[2019-02-11] MEDS ORDERED: MIDAZOLAM 2 MG/2 ML INJ ONE (13:06)
[2019-02-11] MEDS ORDERED: fentaNYL 100 MCG/2 ML INJ ONE (13:06)
[2019-02-11] MEDS ORDERED: MIDAZOLAM 5 MG/5 ML INJ MDV IV ONE (13:21)
[2019-02-11] MEDS ORDERED: fentaNYL 100 MCG/2 ML INJ IV ONE (13:21)
--- NOTE | 2019-02-11 13:54 | Event Note ---
Date: 02/11/19 The patient was brought downstairs and risks, benefits, and alternatives were discussed with the patient, consent was signed. She was placed prone on the CT scanner, and the blood bank business manager CT demonstrated that the previously fluid-filled cavity adjacent to the vagina/within the hysterectomy bed has now been replaced by gas- filled cavity. The patient reports that she has been having drainage per vagina. The fluid collection has self expressed itself through patient's vagina and the previous fluid collection of gas. No need for any drainage or aspiration procedures as there is minimal fluid left to drain/aspirate. This was discussed with the patient and Dr. Gaona.
--- NOTE | 2019-02-11 14:31 | Cat Scan Report ---
EXAM: Aborted CT guided pelvic drain placement ; Limited CT of the abdomen and pelvis CLINICAL INDICATION: Patient status post hysterectomy with fluid collection in the hysterectomy bed adjacent to the vagina DATE: 02/11/19 NUTRITIONISTS: DAKOTA DOMINGUEZ MD MEDICATIONS: Conscious sedation using Versed and fentanyl was performed under guidance of radiologic nursing. Continuous cardiopulmonary monitoring was utilized. PROCEDURE: Following an explanation of the risks, benefits and alternatives; written informed consent was obtained. The patient was brought to the CT suite and placed in the prone position on the CT table. Instrument Shop Supervisor CT was performed of the pelvis. The previously visualized fluid density material in the hysterectomy bed region has been replaced by gas. The patient was then transferred to her floor in stable condition. FINDINGS: 1. No significant amount of fluid in the pelvic collection to allow for drainage. The collection is now predominantly gas-filled. IMPRESSION: No fluid collection for percutaneous CT drainage. The patient reports that she has been having discharge from her vagina compatible with the collection decompressing itself through the vagina. This explains the lack of material available for percutaneous drainage.
[2019-02-12] MEDS: metroNIDAZOLE/NS 500 MG/100 ML 500 MG/100 ML BAG IV SCH ×2 (01:05→07:22)
--- NOTE | 2019-02-12 09:12 | Progress Note ---
Assessment and Plan - Patient Problems (1) Pelvic abscess in female Current Visit: Yes Status: Acute Plan to address problem: Events of yesterday noted. Will discharge on po antibiotics (2) Hypertension Current Visit: No Status: Acute Qualifiers: Hypertension type: essential hypertension Qualified Code(s): I10 - Essential (primary) hypertension Plan to address problem: Normotensive will continue present medications (3) BMI 40.0-44.9, adult Current Visit: Yes Status: Chronic (4) Numbness of left foot Current Visit: Yes Status: Acute Plan to address problem: Neuorology consult obtained Subjective Date of service: 02/12/19 Patient Reports: Positive: pain is less, tolerating a regular diet, voiding w/o difficulty, flatus, afebrile, other (C/o left foot numbness). Negative: nausea, vomiting Objective Vital Signs - 12hr 02/12/19 00:44 Temperature 97.6 F Pulse Rate 88 Respiratory 18 Rate Blood Pressure 138/85 O2 Sat by Pulse 97 Oximetry - General physical appearance well developed, obese - Respiratory normal respiratory effort - Abdomen soft, surgical scars (Healing well) - Integumentary no rash, no growths, no abnormal pigmentation - Neurologic other (Complaint as above) - Psychiatric oriented to time, oriented to person, oriented to place, speech is normal, memory intact - Labs 02/10/19 12:10
[2019-02-12] MEDS: NIFEdipine XL 30 MG TAB PO SCH (09:18)
--- NOTE | 2019-02-12 14:05 | Discharge Summary ---
Providers - Providers Date of Admission: 02/09/19 10:50 Date of discharge: 02/12/19 Attending physician: BHUMI BUSTILLOS 02/09/19 11:16 Consult to Physician [CONS] Routine Comment: call placed to answering service by Dr. Bustillos Consulting Provider: DAKOTA DOMINGUEZ Physician Instructions: please evaluate for CT guided drainage Reason For Exam: post op abscess s/p RATH 02/12/19 09:12 Consult to Physician [CONS] Routine Comment: Physician contacted Consulting Provider: YUE HALL Physician Instructions: Please evaluate Reason For Exam: 12 weeks post hysterectomy c/o left foot numbness Primary care physician: UTILITIES GROUND WORKER Hospitalization Reason for admission: Pelvic abscess Condition: Good Pertinent studies: Abdominal pelvic CT scan/interventional radiology consult/neurology consult Hospital course: Please see H&P for details. Patient was admitted afebrile with what appeared to be pelvic abscess that was draining through the vagina. Did obtain a intravitreal radiology consult and the patient was scheduled and had attempted CT-guided drainage but at time of procedure on February 11 patient has spontaneously drained abscess and the procedure was not performed. The patient's hospital stay she did complain of numbness and her left foot that persisted on day of discharge patient did undergo a neurology consult. Recommendation of the neurologist was for outpatient femoral nerve evaluation. Patient was afebrile throughout her stay. Initially patient had elevated white blood count that returned normal prior to her discharge. At time of discharge patient was tolerating regular diet. Disposition: TO HOME OR SELFCARE - Discharge Diagnoses (1) Pelvic abscess in female Status: Acute (2) Hypertension Status: Acute Qualifiers: Hypertension type: essential hypertension Qualified Code(s): I10 - Essential (primary) hypertension (3) BMI 40.0-44.9, adult Status: Chronic (4) Numbness of left foot Status: Acute Core Measure Documentation - Palliative Care Palliative Care/ Comfort Measures: Not Applicable - Core Measures Any of the following diagnoses?: none Exam - Constitutional Vitals: Temp Pulse Resp BP Pulse Ox 98.0 F 93 H 18 132/83 95 02/12/19 12:04 02/12/19 12:04 02/12/19 12:04 02/12/19 12:04 02/12/19 12:04 General appearance: Present: no acute distress - Neck Neck: Present: supple - Respiratory Respiratory effort: normal - Cardiovascular Rhythm: regular - Extremities Extremities: no ischemia, pulses intact - Abdominal General gastrointestinal: Present: soft, non-distended Female genitourinary: Present: deferred - Integumentary Integumentary: Present: clear, warm, dry - Neurologic Neurologic: other (numbness in the left foot) Plan Activity: advance as tolerated Diet: regular Wound: open to air Additional Instructions: Patient office for fever, chills, nausea, vomiting or pain uncontrolled by pain medication. Patient instructed no heavy lifting, no intercourse. Patient was told to expect a still small amount of drainage but call if she has excessive drainage from the vagina patient is to be seen in office in 6 days. Patient will be scheduled for follow-up outpatient neurology appointment Follow up with: PRIMARY CARE, [Primary Care Provider] - 7 Days Forms: [facility] Discharge Summary, Discharge Signature Page Prescriptions: metroNIDAZOLE [Flagyl] 500 mg PO Q12HR #14 tab DOXYCYCLINE Hyclate [Vibramycin CAP] 100 mg PO Q12HR #14 capsule
[2019-02-12 15:43] VITALS: BP 130/80
--- NOTE | 2019-02-12 16:04 | Consultation ---
History of Present Illness Consult date: 02/12/19 Reason for Consult: Left foot numbness Chief complaint: Left foot numbness History of present illness: Patient is a 43 y/o woman w/ a h/o HTN, uterine fibroids s/p hysterectomy 9 days ago. Patient states that the day after her hysterectomy, she began to experience left foot numbness, and mild left leg weakness. She also states that she experienced Left eye blurry vision for 4 days following the surgery, which has now resolved. Patient was re-admitted due to abscess, which was treated. Past History Past Medical History: hypertension Past Surgical History: hysterectomy Social history: no significant social history Family history: no significant family history Medications and Allergies Allergies Allergy/AdvReac Type Severity Reaction Status Date / Time ciprofloxacin [From Cipro] Allergy Anaphylaxis Verified 01/28/19 11:04 Penicillins Allergy Unknown Verified 01/28/19 11:04 aspirin AdvReac Stomach Verified 01/28/19 11:04 pain Home Medications Medication Instructions Recorded Confirmed Last Taken Type Ferrous Sulfate [Ferrous Sulfate 1 tab PO DAILY 01/28/19 02/10/19 Unknown History 324 MG] Ibuprofen [Motrin 800 MG tab] 800 mg PO Q8H PRN 01/28/19 02/10/19 Unknown History Norethindrone-Ethinyl Estrad 1 tab PO DAILY 01/28/19 02/10/19 Unknown History [Balziva 28 Tablet] Ibuprofen [Motrin 800 MG tab] 800 mg PO Q6H PRN #30 tablet 02/04/19 02/10/19 Unknown Rx oxyCODONE /ACETAMINOPHEN [Percocet 1 - 2 tab PO Q4H PRN #30 tablet 02/04/19 02/10/19 Unknown Rx 5/325 mg] DOXYCYCLINE Hyclate [Vibramycin 100 mg PO Q12HR #14 capsule 02/12/19 Unknown Rx CAP] metroNIDAZOLE [Flagyl] 500 mg PO Q12HR #14 tab 02/12/19 Unknown Rx Active Meds: Active Medications Acetaminophen (Tylenol) 650 mg PO Q4H PRN PRN Reason: Pain MILD(1-3)/Fever >100.5/JARAMILLO Last Admin: 02/11/19 23:08 Dose: 650 mg Documented by: Acetaminophen/Hydrocodone Bitart ([place] 5/325) 2 each PO Q6H PRN PRN Reason: Pain, Moderate (4-6) Last Admin: 02/11/19 05:47 Dose: 2 each Documented by: Clindamycin HCl (Cleocin 900 Mg/50 Ml) 900 mg in 50 mls @ 100 mls/hr IV Q8HR [facility]; Protocol Last Admin: 02/12/19 09:19 Dose: 100 mls/hr Documented by: Metronidazole (Flagyl 500 Mg/100 Ml) 500 mg in 100 mls @ 100 mls/hr IV Q6HR [facility]; Protocol Last Admin: 02/12/19 07:22 Dose: 100 mls/hr Documented by: Nifedipine (Procardia Xl) 90 mg PO QDAY [facility] Last Admin: 02/12/19 09:18 Dose: 90 mg Documented by: Ondansetron HCl (Zofran) 4 mg IV Q8H PRN PRN Reason: Nausea And Vomiting Sodium Chloride (Sodium Chloride Flush Syringe 10 Ml) 10 ml IV BID [facility] Last Admin: 02/10/19 21:18 Dose: 10 ml Documented by: Sodium Chloride (Sodium Chloride Flush Syringe 10 Ml) 10 ml IV PRN PRN PRN Reason: LINE FLUSH Review of Systems All systems: negative Neurological: weakness, parathesias Physical Examination - Vital Signs Vital Signs: Vital Signs Temp Pulse Resp BP 98.2 F 90 20 122/79 02/09/19 16:25 02/09/19 16:25 02/09/19 16:25 02/09/19 16:25 - Physical Exam Narrative exam: Patient is alert, awake, oriented x4. Follows complex commands. PERRL, EOMI, VFF, no facial weakness noted, tongue midline, b/l intact to LT. 5/5 strength in RUE/RLE/LUE. LLE noted to have 4/5 strength in hip flexors, adductors, KF, KE, AE. Noted to have decreased sensation on dorsal surface of foot and distal plantar surface. B/l intact to FTN and HTS. 2+ reflexes throughout. No dysarthria or aphasia noted. - Constitutional General appearance: comfortable - EENT EENT: Present: ATNC, PERRL, mucous membranes moist, hearing intact, vision intact - Respiratory Respiratory: Present: lungs clear, normal breath sounds - Cardiovascular Cardiovascular: Present: regular rate, normal S1, normal S2 Extremities: Present: no clubbing, cyanosis, no inflammation - Gastrointestinal Gastrointestinal: Present: normoactive bowel sounds, soft, non-tender - Musculoskeletal Musculoskeletal: Present: no fluid collection, no pain - Psychiatric Psychiatric: Present: mood/affect appropriate Results - Laboratory Findings CBC and BMP: 02/10/19 12:10 Abnormal Lab Findings: Abnormal Labs 02/10/19 12:10 Hgb 8.4 L Hct 27.3 L MCV 70 L MCH 22 L RDW 33.3 H Plt Count 518 H Seg Neuts % (Manual) 78.0 H Lymphocytes % (Manual) 13.0 L Lymphocytes # (Manual) 1.1 L Assessment and Plan Patient is a 43 y/o woman w/ a h/o HTN, uterine fibroids s/p hysterectomy 9 days ago, who began to experience Lt. foot paresthesias and LLE weakness after surgery. 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 Alternatively, patient may have had a stroke, as she c/o Lt. eye blurry vision, however this is less likely. Plan: 1. LLE weakness/Lt. 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 - Recommend for patient to have EMG/NCS, carotid ultrasound, MRI brain to rule out stroke. - Also recommend for patient to see ophthalmology as outpatient, due to unexplained Lt. eye blurry vision. - Recommend PT/OT for LLE weakness. - Recommend follow up with neurology as outpatient in next 1 week. - Plan of care was discussed with primary team. Thank you for allowing me to take part in the care of this patient. Erich Encarnacion MD Neurology
== END 2019-02-12 15:30 | disposition home or self-care (01) | DRG 863 ==
LOC: UNDOADMIN 07:53 → 3A 07:53 → OB 10:50
PROVIDERS: ADMIT Obstetrics & Gynecology; ATTEND Obstetrics & Gynecology
DX: T81.49XA Infection following a procedure, other surgical site, initial encounter (principal); L02.818 Cutaneous abscess of other sites; Z68.41 Body mass index [BMI] 40.0-44.9, adult; N73.8 Other specified female pelvic inflammatory diseases; R20.0 Anesthesia of skin; N89.8 Other specified noninflammatory disorders of vagina; I10 Essential (primary) hypertension; Z90.710 Acquired absence of both cervix and uterus; Z88.0 Allergy status to penicillin; Z88.6 Allergy status to analgesic agent; Z79.899 Other long term (current) drug therapy
CPT/HCPCS: 36415; 72192; 74176; 85007; 85025; G0378; J2250; J3010